=== PATIENT | female | born 1990 | race Caucasian/White ===

== ENCOUNTER 2021-01-10 23:06 | Emergency (ER) | payer OTHER ==
[2021-01-10] MEDS ORDERED: Amoxicillin/Clavulanate K 875-125 MG Tab PO ONE (23:27)
[2021-01-10] MEDS ORDERED: Diphtheria,Pertussis(Acell),Tetanus Vaccine 0.5 ML Syringe IM ONE (23:30)
[2021-01-10] MEDS ORDERED: Bacitracin Oint 1 GM U/D Packet TOP ONE (23:44)
--- NOTE | 2021-01-10 23:51 | EDM.PDOC ---
ED HPI GENERAL MEDICAL PROBLEM - General Chief Complaint: Bite:Animal, Insect Stated Complaint: DOG BITE Time Seen by Provider: 01/10/21 23:15 Source of Information: Reports: Patient History Limitations: Reports: No Limitations - History of Present Illness INITIAL COMMENTS - FREE TEXT/NARRATIVE: Lili is a 30-year-old female presenting to the ED for evaluation of dog bite to the upper right leg approximately 3 cm below the knee. It is unclear what caused the dog bite, however, the dog does have a history of aggression issues in the past. The attack was unprovoked. The dog is up-to-date on its shots. The patient's last tetanus was in 2007. The wound is approximately 3 cm in length. right knee Pain Score (Numeric/FACES): 3 - Related Data Allergies Allergy/AdvReac Type Severity Reaction Status Date / Time No Known Allergies Allergy Verified 01/10/21 23:22 Home Meds: Home Meds Amoxicillin/Potassium Clav [Augmentin 875-125 Tablet] 1 each PO BID #20 tablet 01/10/21 [Rx] Past Medical History Musculoskeletal History: Reports: Fracture - Infectious Disease History Infectious Disease History: Reports: None Social & Family History - Tobacco Use Tobacco Use Status *Q: Current Some Day Tobacco User Years of Tobacco use: 15 Packs/Tins Daily: 0.5 - Caffeine Use Caffeine Use: Reports: Energy Drinks - Alcohol Use Days Per Week of Alcohol Use: 6 Number of Drinks Per Day: 2 Total Drinks Per Week: 12 - Recreational Drug Use Recreational Drug Use: No ED ROS GENERAL - Review of Systems Review Of Systems: See Below Constitutional: Reports: No Symptoms HEENT: Reports: No Symptoms Respiratory: Reports: No Symptoms Cardiovascular: Reports: No Symptoms Endocrine: Reports: No Symptoms GI/Abdominal: Reports: No Symptoms : Reports: No Symptoms Musculoskeletal: Reports: No Symptoms Skin: Reports: Wound (Dog bite to the upper right leg approximately 3 cm below the knee.) Neurological: Reports: No Symptoms Psychiatric: Reports: No Symptoms Hematologic/Lymphatic: Reports: No Symptoms Immunologic: Reports: No Symptoms ED EXAM, ANIMAL BITE - Physical Exam Exam: See Below Exam Limited By: No Limitations General Appearance: Alert, No Apparent Distress Cardiovascular: Normal Peripheral Pulses Peripheral Pulses: 2+: Posterior Tibial (R), Dorsalis Pedis (R) Extremities: Normal Range of Motion, No Pedal Edema, Normal Capillary Refill, Other (3 cm laceration from a dog bite to the upper right leg approximately 3 cm below the knee. And is currently controlled.) Neurological: Alert, Oriented, Normal Cognition, No Motor/Sensory Deficits Skin Exam: Other (3 cm laceration in the upper right leg from a dog bite.) Lymphatic: No Adenopathy ED ANIMAL BITE PROCEDURES - Laceration/Wound Repair Right Upper Leg Lac/Wound Length In cm: 3.0 Appearance: Subcutaneous, Mildly Contaminated Distal NVT: Neuro & Vascular Intact, No Tendon Injury Anesthetic Type: Local Local Anesthesia - Lidocaine (Xylocaine): 1% Plain Local Anesthetic Volume: 4cc Skin Prep: Saline Exploration/Debridement/Repair: Wound Explored, In a Bloodless Field Closed With: Sutures Suture Size: 4-0 # of Sutures: 4 Suture Type: Nylon, Interrupted Sterile Dressing Applied: Nurse Tetanus Status Addressed: Yes Complications: No Course - Vital Signs Last Recorded V/S: Last Vital Signs Temp 36.6 C 01/10/21 23:27 Pulse 99 01/10/21 23:27 Resp 16 01/10/21 23:27 BP 117/78 01/10/21 23:27 Pulse Ox 95 01/10/21 23:27 - Orders/Labs/Meds Orders: Active Orders 24 hr Category Date Time Status Vaccines to be Administered [RC] PER UNIT ROUTINE Care 01/10/21 23:30 Ordered Meds: Medications Discontinued Medications Generic Name Dose Route Start Last Admin Trade Name Freq PRN Reason Stop Dose Admin Amoxicillin/Clavulanate Potassium 1 tab 01/10/21 23:27 Amoxicillin/Clavulanate K 875-125 Mg Tab PO 01/10/21 23:28 ONETIME ONE Bacitracin 1 dose 01/10/21 23:44 Bacitracin Oint 1 Gm U/D Packet TOP 01/10/21 23:45 ONETIME ONE Diphtheria/Tetanus/Acell Pertussis 0.5 ml 01/10/21 23:30 Diphtheria,Pertussis(Acell),Tetanus Vaccine 0.5 Ml Syringe IM 01/10/21 23:31 .ONCE ONE Lidocaine HCl 5 ml 01/10/21 23:27 Lidocaine 1% 5 Ml Sdv INJECT 01/10/21 23:28 ONETIME ONE - Re-Assessments/Exams Free Text/Narrative Re-Assessment/Exam: 01/10/21 23:50 patient was bit by her dog. The dog is up-to-date on his shots. We did booster the patient's tetanus. I am starting her on Augmentin 875 mg twice daily for the next 10 days. First dose was given in the ED and an additional prescription was sent home with the patient for the remainder of the course to be started tomorrow. The sutures will need to be removed in 7 to 10 days. Indications return to ED were discussed and she was discharged in sati sfactory condition. All questions were answered prior to discharge. Departure - Departure Time of Disposition: 23:51 Disposition: Home, Self-Care 01 Clinical Impression: Dog bite of extremity Laceration of right lower leg Qualifiers: Encounter type: initial encounter Qualified Code(s): S81.811A - Laceration without foreign body, right lower leg, initial encounter - Discharge Information *PRESCRIPTION DRUG MONITORING PROGRAM REVIEWED*: Not Applicable *COPY OF PRESCRIPTION DRUG MONITORING REPORT IN PATIENT PILAR: Not Applicable Prescriptions: Amoxicillin/Potassium Clav [Augmentin 875-125 Tablet] 1 each PO BID #20 tablet Instructions: Animal Bite, Adult, [id number], Laceration Care, Adult Referrals: PCP,None [Primary Care Provider] - Care Plan Goals: Almost unanimously dog bite wounds become infected. Please make sure to take the Augmentin twice daily as prescribed for the full 10 days. You may get some increased redness, swelling, and tenderness in the next 24 hours but I would expect within 48 hours that would start to subside. You may get some drainage from the edge of the wound. Return to the ED should the sutures breakdown or the wound open for reevaluation. Please keep the wound clean and dry for the next 24 hours. Apply a light coating of antibiotic ointment to the wound twice daily. The sutures will need to be removed in 7 to 10 days. This can be done at your local clinic. Sepsis Event Note (ED) - Evaluation Sepsis Screening Result: No Definite Risk - Focused Exam Vital Signs: Vital Signs Temp Pulse Resp BP Pulse Ox 01/10/21 23:27 36.6 C 99 16 117/78 95 01/10/21 23:20 36.6 C 99 16 117/78 95 - Problem List & Annotations (1) Dog bite of extremity SNOMED Code(s): 937128328 Code(s): CWP1493 - Status: Acute Priority: Medium Current Visit: Yes (2) Laceration of right lower leg SNOMED Code(s): 02066118733469404 Code(s): S81.811A - LACERATION W/O FOREIGN BODY, RIGHT LOWER LEG, INIT ENCNTR Status: Acute Priority: Medium Current Visit: Yes - Problem List Review Problem List Initiated/Reviewed/Updated: Yes - My Orders Last 24 Hours: My Active Orders 01/10/21 23:30 Vaccines to be Administered [RC] PER UNIT ROUTINE - Assessment/Plan Last 24 Hours: My Active Orders 01/10/21 23:30 Vaccines to be Administered [RC] PER UNIT ROUTINE
== END 2021-01-11 00:02 | disposition home or self-care (01) ==
LOC: JP.ED 23:06
DX: S81.851A Open bite, right lower leg, initial encounter (principal); Z72.0 Tobacco use; W54.0XXA Bitten by dog, initial encounter; Z23 Encounter for immunization
CPT/HCPCS: 12002; 90471; 90715; 99284-25; A9270-GY